=== PATIENT | male | born 1960 | race Two or more races ===

== ENCOUNTER 2023-05-22 14:34 | Emergency (ER) | payer BC ==
[~2023-05-22] VITALS: Ht 182.9 cm; Wt 98.8 kg
[2023-05-22 14:51] VITALS: BP 138/88; RESP 18; O2SAT 97
[2023-05-22 14:54] VITALS: PULSE 85
== END 2023-05-22 18:26 | disposition left against medical advice (07) ==
LOC: ER 14:34
DX: M25.511 Pain in right shoulder (principal); Z53.21 Procedure and treatment not carried out due to patient leaving prior to being seen by health care provider; Z79.899 Other long term (current) drug therapy
CPT/HCPCS: 73030; 93005